=== PATIENT | male | born 1990 | race Caucasian/White ===

== ENCOUNTER 2016-10-06 00:06 | Emergency (ER) | payer BC, OTHER ==
[~2016-10-06] VITALS: Ht 177.8 cm; Wt 81.6 kg
[~2016-10-06 00:06] MED LIST: AZIT250T6 PO; DESL1TBM; zertec
[2016-10-06 00:20] VITALS: BP 136/78
--- NOTE | 2016-10-06 00:41 | PHYS DOC ---
Past Medical History Past Medical History: No Pertinent History Past Surgical History: No Surgical History Alcohol Use: Rarely Drug Use: Marijuana Adult General Chief Complaint Chief Complaint: FINGER INJURY HPI HPI Patient is a 26 year old male presents to the emergency department with complaints of a foreign body in the fifth finger. Patient states he was working with [employer] when a splinter from the [employer] went into the fifth finger of the right hand. He states this happened 3 hours prior to arrival. He made multiple attempts to remove the foreign body was unsuccessful. Review of Systems Review of Systems Musculoskeletal: Foreign body Current Medications Current Medications Current Medications Medications (Trade) Dose Ordered Sig/Patsy Start Time Stop Time Status Last Admin Dose Admin Bupivacaine HCl (Marcaine 0.5%) 50 ml 1X ONCE 10/06/16 01:00 10/06/16 01:01 10/06/16 00:41 50 ML Allergies Allergies Allergies Coded Allergies Type Severity Reaction Last Updated Verified cefuroxime axetil Allergy Severe 03/04/13 Yes Physical Exam Physical Exam Extremities: Right fifth finger foreign body through the soft tissue extending from the lateral, proximal aspect just above the MCP to the distal, medial just below the PIP. Neurovascular intact distally. Remainder hand exam unremarkable. Current Patient Data Vital Signs Vital Signs Date Time Temp Pulse Resp B/P (MAP) Pulse Ox O2 Delivery O2 Flow Rate FiO2 10/06/16 00:20 98.4 88 18 99 Room Air 98.4 EKG EKG [] Radiology/Procedures Radiology/Procedures Hand x-ray reviewed by Dr. Elio Odell, emergency room physician. No acute changes. [] Course & Med Decision Making Course & Med Decision Making Pertinent Labs and Imaging studies reviewed. (See chart for details) [] Procedure note: Right fifth finger anesthetized with 0.5% Marcaine per digital block. The finger was cleansed with Betadine normal saline. A #11 blade , half centimeter superficial incision, a wooden foreign body was removed from the finger with a pair of forceps. Patient tolerated procedure well. Patient has full range of motion of the finger without difficulty. Neurovascular intact distally. Discussed with the patient the probability or possibility of portion of the product. Patient verbalized understanding. He is returning emergency department his primary care provider should he have new symptoms or concerns or worsening of current condition. Dragon Disclaimer Dragon Disclaimer This electronic medical record was generated, in whole or in part, using a voice recognition dictation system. Departure Departure Impression: Primary Impression: Foreign body finger Disposition: HOME, SELF-CARE Condition: STABLE Referrals: NO PCP (PCP) Patient Instructions: Ear Foreign Body Scripts Cephalexin (KEFLEX) 500 Mg Capsule 1 CAP PO TID, #21 CAP Prov: ROBERTA PHIPPS APRN 10/06/16 ROBERTA PHIPPS APRN Oct 06, 2016 00:41
[2016-10-06] MEDS ORDERED: BUPIVACAINE 0.5% 50 ML VIAL. INFIL ONE (01:00)
[2016-10-06] MEDS ORDERED: CEPH-264 PO (01:01)
--- NOTE | 2016-10-06 07:44 | RAD ---
Examination: 3 views of the right fifth digit. History: History of foreign body metacarpophalangeal joint region Comparison: None available Findings: The alignment of the metacarpal phalangeal joint, interphalangeal joints grossly appears unremarkable. Flexed appearance of the fifth digit limits evaluation. No evidence of metallic radiopaque density visualized. Impression: 1. No acute osseous findings.
== END 2016-10-06 01:03 | disposition home or self-care (01) ==
LOC: ER 00:06
DX: S60.456A Superficial foreign body of right little finger, initial encounter (principal); F12.10 Cannabis abuse, uncomplicated; Z88.8 Allergy status to other drugs, medicaments and biological substances; W45.8XXA Other foreign body or object entering through skin, initial encounter; W27.8XXA Contact with other nonpowered hand tool, initial encounter; Y93.89 Activity, other specified; Y92.89 Other specified places as the place of occurrence of the external cause; Y99.8 Other external cause status
CPT/HCPCS: 10120; 73140; 99284; J3490